=== PATIENT | female | born 1970 | race African-American/Black ===

== ENCOUNTER 2025-05-13 12:12 | Emergency (ER) | payer SELFPAY | END 2025-05-13 12:47 | LOC: ERS 12:12 | DX: Z04.1 Encounter for examination and observation following transport accident (principal); I10 Essential (primary) hypertension; J45.909 Unspecified asthma, uncomplicated; F17.210 Nicotine dependence, cigarettes, uncomplicated; Z79.899 Other long term (current) drug therapy; V43.53XA Car driver injured in collision with pick-up truck in traffic accident, initial encounter; Y93.89 Activity, other specified | CPT/HCPCS: 99283 ==